=== PATIENT | male | born 1955 | race Caucasian/White ===

== ENCOUNTER 2017-11-22 14:36 | Emergency (ER) | payer BC ==
[~2017-11-22] VITALS: Ht 175.3 cm; Wt 108.9 kg
[2017-11-22 14:45] VITALS: BP 159/81
[2017-11-22] MEDS ORDERED: NAPROXEN 500 MG TABLET PO STA (15:09)
[2017-11-22] MEDS ORDERED: HYDROcodone/APAP 5/325MG 1 TAB TABLET PO ONE (15:15)
--- NOTE | 2017-11-22 15:39 | RAD ---
Three-view right knee dated 11/22/2017. No comparison available. Clinical data indication: Pain and swelling. FINDINGS: 3 views right knee show normal bony alignment. No displaced fracture. No acute osseous or articular abnormality. No apparent joint effusion or loose body. Minimal degenerative change of the anterior compartment. IMPRESSION: No acute findings. Electronically signed by: Haroon Fitzgerald MD (11/22/2017 3:36 PM) [id number]
[2017-11-22] MEDS ORDERED: DICL50TA4 PO (15:54)
--- NOTE | 2017-11-22 15:55 | PHYS DOC ---
Past Medical History Past Medical History: Diabetes-Type II, High Cholesterol, Other Additional Past Medical Histor: neuropathy Past Surgical History: Other Additional Past Surgical Histo: right arm fx repair, left elbow, bilateral carpal tunnel release Additional Information: quit smoking 10 years ago Alcohol Use: Rarely Drug Use: None Adult General Chief Complaint Chief Complaint: KNEE INJURY HPI HPI Patient is a 62 year old male with history of diabetes type 2, high cholesterol , who presents today complaining of a sharp intermittent 8 out of 10 right lateral knee pain that has been going on since yesterday evening. Patient denies any known injury. States the pain is worse on flexion of the knee. Has not tried anything for his symptoms. Review of Systems Review of Systems Constitutional: Denies fever or chills [] Musculoskeletal: Reports right knee pain Integument: Denies rash or skin lesions [] Neurologic: Denies headache, focal weakness or sensory changes [] All other systems were reviewed and found to be within normal limits, except as documented in this note. Current Medications Current Medications Current Medications Medications (Trade) Dose Ordered Sig/Charity Start Time Stop Time Status Last Admin Dose Admin Acetaminophen/ Hydrocodone Bitart (Lortab 5/325) 2 tab 1X ONCE 11/22/17 15:15 11/22/17 15:16 DC 11/22/17 15:19 2 TAB Naproxen (Naprosyn) 500 mg 1X STAT 11/22/17 15:09 11/22/17 15:13 DC 11/22/17 15:19 500 MG Allergies Allergies Allergies Coded Allergies Type Severity Reaction Last Updated Verified No Known Drug Allergies 11/22/17 No Physical Exam Physical Exam Constitutional: Well developed, well nourished, no acute distress, non-toxic appearance. [] Skin: Warm, dry, no erythema, no rash. [] Back: No tenderness, no CVA tenderness. [] Extremities: Right knee with no obvious deformity. Slight tenderness on palpation of the right lateral knee. Full range of motion to the right knee. Negative Shira sign and negative Fausto's sign negative anterior-posterior drawer sign to the right knee. +2 right pedal pulse. Cap refill less than 2 seconds the right lower extremity. Neurologic: Alert and oriented X 3, normal motor function, normal sensory function, no focal deficits noted. [] Psychologic: Affect normal, judgement normal, mood normal. [] Current Patient Data Vital Signs Vital Signs Date Time Temp Pulse Resp B/P (MAP) Pulse Ox O2 Delivery O2 Flow Rate FiO2 11/22/17 14:45 98.1 76 20 159/81 (107) 97 Room Air 98.1 EKG EKG [] Radiology/Procedures Radiology/Procedures []PROCEDURE: KNEE RIGHT 3V Three-view right knee dated 11/22/2017. No comparison available. Clinical data indication: Pain and swelling. FINDINGS: 3 views right knee show normal bony alignment. No displaced fracture. No acute osseous or articular abnormality. No apparent joint effusion or loose body. Minimal degenerative change of the anterior compartment. IMPRESSION: No acute findings. Electronically signed by: Haroon Fitzgerald MD (11/22/2017 3:36 PM) [id number] DICTATED and SIGNED BY: HAROON FITZGERALD MD DATE: 11/22/17 1535 Course & Med Decision Making Course & Med Decision Making Pertinent Labs and Imaging studies reviewed. (See chart for details) This is a 62-year-old male patient presenting to the ED today with right knee pain, no known injury. Right knee x-rays interpreted by radiologist are negative for any acute findings. Immobilizer applied to the right knee by the airborne weapons technical manager, neurovascular exam is intact, ice elevation encouraged. Diclofenac for pain. Follow-up with orthopedic doctor in a week if pain continues. Dragon Disclaimer Dragon Disclaimer This electronic medical record was generated, in whole or in part, using a voice recognition dictation system. Departure Departure Impression: Primary Impression: Right knee pain Disposition: HOME, SELF-CARE Condition: STABLE Referrals: JJ POND MD (PCP) LOLA BECERRA MD follow up in one week if pain continues Patient Instructions: Knee Pain, [id number] Additional Instructions: You were evaluated in the emergency room for right knee pain, your right knee x- rays are negative for any acute findings. Take the prescribed medications as needed for pain. Ice elevate the extremity. Wear the immobilizer provided as tolerated. Scripts Diclofenac Sodium (DICLOFENAC SODIUM) 50 Mg Tablet.dr 1 TAB PO BID, #30 TAB 0 Refills Prov: JESÚS TURK MICHAEL 11/22/17 Problem Qualifiers Primary Impression: Right knee pain Chronicity: acute Qualified Codes: M25.561 - Pain in right knee JESÚS TURK MICHAEL Nov 22, 2017 15:55
== END 2017-11-22 16:04 | disposition home or self-care (01) ==
LOC: ER 14:36
DX: M25.561 Pain in right knee (principal); E78.00 Pure hypercholesterolemia, unspecified; E11.40 Type 2 diabetes mellitus with diabetic neuropathy, unspecified; Z87.891 Personal history of nicotine dependence
CPT/HCPCS: 73562; 99284